=== PATIENT | female | born 1995 | race Caucasian/White ===

== ENCOUNTER → 2023-11-11 16:39 | Outpatient (BNVA) | payer MEDICAID, SELFPAY | PROVIDERS: Visit Provider Nurse Practitioner Family | DX: R11.2 Nausea with vomiting, unspecified (principal); R68.89 Other general symptoms and signs; K52.9 Noninfective gastroenteritis and colitis, unspecified | CPT/HCPCS: 87400; 87426 ==

== ENCOUNTER 2024-06-10 17:06 | Emergency (ER) | payer MEDICAID, SELFPAY ==
[2024-06-10 17:09] VITALS: BP 107/69; PULSE 107; RESP 18; TEMP 36.7; O2SAT 99; BMI 20.3
--- NOTE | 2024-06-10 17:23 | W.ED.NAVMDI ---
HPI - Nausea/Vomiting/Diarrhea General: Chief complaint: Nausea/Vomiting/Diarrhea Stated complaint: nausea Time Seen by Provider: 06/10/24 17:08 Source: patient Mode of arrival: ambulatory Limitations: no limitations History of Present Illness: 28-year-old female is a type I diabetic states she has felt nauseous throughout the day today she has not had any vomiting states she has had a decreased appetite she is able to tolerate fluids but wants make sure she is not going into DKA states her blood sugars running in the 200s at home. She denies any fevers. Associated nausea: Yes Associated symtoms: Reports nausea; Denies chest pain, dysuria or headache(s) Related Data Home Medications Medication Instructions Recorded Confirmed insulin aspart U-100 100 unit/mL 5 unit SUBCUT TID 11/11/23 11/11/23 subcutaneous solution (Novolog U-100 Insulin aspart) insulin glargine 100 unit/mL 20 unit SUBCUT BID 11/11/23 11/11/23 subcutaneous cartridge metoclopramide HCl 5 mg tablet 5 mg PO DAILY 11/11/23 11/11/23 pantoprazole 40 mg granules 40 mg PO DAILY 11/11/23 11/11/23 delayed-release for susp in packet (Protonix) Previous Rx's Medication Instructions Recorded prochlorperazine maleate 5 mg 5 - 10 mg (1 - 2 x 5 mg) PO Q8H 11/11/23 tablet (Compazine) PRN nausea and vomiting 7 days #30 tabs ondansetron 4 mg disintegrating 4 mg PO Q6H PRN nausea and 06/10/24 tablet vomiting #14 tabs Allergies Allergy/AdvReac Type Severity Reaction Status Date / Time No Known Allergies Allergy Unverified 11/11/23 16:12 Review of Systems Const: Denies: fever(s), chills, body aches or change in appetite ENMT: Denies: throat pain or dental pain Card: Denies: chest pain Resp: Denies: dyspnea GI: Reports: nausea and vomiting; Denies: abdominal pain or diarrhea : Denies: dysuria Musc: Denies: neck pain or back pain Skin/Breast: Denies: rash Neuro: Denies: headache(s) PFSH ED PFSH: Medical History Nausea & vomiting Flu-like symptoms Physical Exam Const: COMMON NORMALS: no acute distress, patient oriented x3 and healthy appearing HENMT: COMMON NORMALS: normocephalic and atraumatic HEAD & SCALP: normocephalic and atraumatic Eye: COMMON NORMALS: Equal, round and reactive pupils present and EOMs intact bilaterally PUPIL: Yes Equal, round and reactive pupils present Neck/C-Spine: COMMON NORMALS: full ROM and supple Chest: COMMONS NORMALS: normal inspection of the chest and normal palpation of entire chest wall Resp: COMMON NORMALS: normal respiratory effort, No retractions, No use of accessory muscles and clear to auscultation bilaterally AUSCULTATION: clear to auscultation bilaterally Cardio: COMMON NORMALS: regular rate, regular rhythm and No murmurs present (Cardio) RATE: regular rate RHYTHM: regular rhythm GI: COMMON NORMALS: Normal to inspection, nondistended, normoactive bowel sounds present, Soft to palpation, non-tender and no masses PALPATION: Yes Soft to palpation Extremity: COMMON NORMALS: normal to inspection and full ROM Neuro: COMMON NORMALS: patient oriented x3, moves all extremities and no focal motor deficits Psych: COMMON NORMALS: mental status grossly normal, Normal thought process present and cooperative THOUGHT PROCESS: Normal thought process present Skin: COMMON NORMALS: no rashes or lesions noted and no wounds GENERAL SKIN EXAM: no rashes or lesions noted Course Vital Signs: Vital signs: Vital Signs Temperature 98.1 F 06/10/24 17:09 Pulse Rate 110 H 06/10/24 18:20 Respiratory Rate 18 06/10/24 17:09 Blood Pressure 114/87 06/10/24 18:20 Pulse Oximetry 98 06/10/24 18:20 Oxygen Delivery Me thod Room Air 06/10/24 17:09 MDM - Nausea/Vomiting/Diarrhea Medical Decision Making Patient presents here with nausea feels improved here blood work here is normal she is not DKA she stable for discharge follow-up with PCP return if worsening. Medical Records I reviewed the patient's medical records. Lab Data I reviewed the patient's lab results. 06/10/24 17:50 06/10/24 17:50 Laboratory Results WBC 7.09 10^3/uL (3.29-11.43) 06/10/24 17:50 Corrected WBC Cancelled 06/10/24 17:24 RBC 4.54 10^6/uL (3.85-5.65) 06/10/24 17:50 Hgb 13.80 g/dL (11.27-16.99) 06/10/24 17:50 Hct 42.0 % (36-47) 06/10/24 17:50 MCV 92.5 fl (85-98) 06/10/24 17:50 MCH 30.4 pg (27-33) 06/10/24 17:50 MCHC 32.9 g/dL (30-55) 06/10/24 17:50 RDW 12.7 % (12.1-15.1) 06/10/24 17:50 Plt Count 226 10^3/cmm (157-399) 06/10/24 17:50 MPV 10.9 fL (7.4-10.4) H 06/10/24 17:50 Gran % Cancelled 06/10/24 17:24 Neut % (Auto) 64.6 % 06/10/24 17:50 Lymph % (Auto) 26.4 % 06/10/24 17:50 [place] % (Auto) 6.3 % 06/10/24 17:50 Eos % (Auto) 1.7 % 06/10/24 17:50 Baso % (Auto) 0.7 % 06/10/24 17:50 Neut # (Auto) 4.58 10^3/uL (1.8-7.7) 06/10/24 17:50 Lymph # (Auto) 1.9 10^3/uL (0.8-4.8) 06/10/24 17:50 [place] # (Auto) 0.5 10^3/uL (0.2-0.9) 06/10/24 17:50 Eos # (Auto) 0.1 10^3/uL (0.0-0.8) 06/10/24 17:50 Baso # (Auto) 0.1 10^3/uL (0.0-0.1) 06/10/24 17:50 Absolute Gran (auto) Cancelled 06/10/24 17:24 Nucleated RBC % (auto) 0 % 06/10/24 17:50 Nucleated RBCs # 0.0 /100WBC 06/10/24 17:50 Sodium 138 mmol/L (136-145) 06/10/24 17:50 Potassium 4.3 mmol/L (3.5-5.1) 06/10/24 17:50 Chloride 100 mmol/L (98-107) 06/10/24 17:50 Carbon Dioxide 24 mmol/L (22-29) 06/10/24 17:50 Anion Gap 18.3 (5-19) 06/10/24 17:50 BUN 16 mg/dL (6-20) 06/10/24 17:50 Creatinine 0.6 mg/dL (0.5-0.9) 06/10/24 17:50 GFR Calculation 118.2 mL/min (90-130) 06/10/24 17:50 Glucose 246 mg/dL (65-115) H 06/10/24 17:50 POC Glucose 219 mg/dL (70-110) H 06/10/24 17:33 Calculated Osmolality 295 mOsm/kg (285-295) 06/10/24 17:50 Calcium 9.2 mg/dL (8.5-10.5) 06/10/24 17:50 Total Bilirubin 0.6 mg/dL (0.15-1.2) 06/10/24 17:50 AST 11 U/L (0-32) 06/10/24 17:50 ALT 9 U/L (0-33) 06/10/24 17:50 Alkaline Phosphatase 91 U/L (35-105) 06/10/24 17:50 Total Protein 6.6 g/dL (6.6-8.7) 06/10/24 17:50 Albumin 3.9 g/dL (3.5-5.2) 06/10/24 17:50 Globulin 2.7 g/dL (1.3-4.6) 06/10/24 17:50 Lipase 16 U/L (13-60) 06/10/24 17:50 HCG, Qual Negative (Negative) 06/10/24 17:50 All radiology interpretation(s) finalized by discharge Discharge Plan Discharge Patient Disposition: Home Clinical Impression: Nausea Condition: Stable Prescriptions: New ondansetron 4 mg tablet,disintegrating 4 mg PO Q6H PRN (Reason: nausea and vomiting) Qty: 14 0RF No Action insulin glargine 100 unit/mL cartridge 20 unit SUBCUT BID insulin aspart U-100 [Novolog U-100 Insulin aspart] 100 unit/mL solution 5 unit SUBCUT TID pantoprazole [Protonix] [address] for susp in packet 40 mg PO DAILY metoclopramide HCl 5 mg tablet 5 mg PO DAILY prochlorperazine maleate [Compazine] 5 mg tablet 5 - 10 mg PO Q8H PRN (Reason: nausea and vomiting) 7 Days Qty: 30 0RF Discharge Orders: Discharge ED (Routine); Ordered 06/10/24 Ordered By: Miranda Rivas Discharge Diet: Advance as tolerated Discharge Activity: Resume usual activity Patient Instructions: Acute Nausea and Vomiting (ED) Coding Level of Care Code ED [employer] [facility]
[2024-06-10 17:38] LABS: Glucose Point of Care 219 mg/dL (70-110)
--- NOTE | 2024-06-10 17:38 | PC.NURSE ---
pt glucose via FS 219, pt states she just ate @1430 and a little before that as well. approx x2 hotdogs, sandwich.
[2024-06-10] MEDS: diphenhydrAMINE 50 mg/mL SDV 1mL IVP (17:51)
[2024-06-10] MEDS: metoclopramide 5 mg/mL SDV 2 mL 10 MG IVP (17:52)
[2024-06-10] MEDS: sodium chloride 0.9% 1,000 ML 999 ML IV (17:52)
--- NOTE | 2024-06-10 17:52 | PC.NURSE ---
pt states took 4 units insulin @1500
[2024-06-10 18:06] LABS: Basophils # 0.1 10^3/uL (0.0-0.1); Basophils % 0.7 %; Eosinophils # 0.1 10^3/uL (0.0-0.8); Eosinophils % 1.7 %; Lymphocytes # 1.9 10^3/uL (0.8-4.8); Lymphocytes % 26.4 %; Mean Corpuscular HGB Conc 32.9 g/dL (30-55); Mean Corpuscular Hemoglobin 30.4 pg (27-33); Mean Corpuscular Volume 92.5 fl (85-98); Mean Platelet Volume 10.9 fL (7.4-10.4); Monocytes # 0.5 10^3/uL (0.2-0.9); Monocytes % 6.3 %; Neutrophils # 4.58 10^3/uL (1.8-7.7); Neutrophils % 64.6 %; Nucleated Red Blood Cells % 0 %; Platelet Count 226 10^3/cmm (157-399); Red Blood Count 4.54 10^6/uL (3.85-5.65); Red Cell Distribution Width 12.7 % (12.1-15.1); White Blood Count 7.09 10^3/uL (3.29-11.43)
[2024-06-10 18:16] LABS: HCG, Serum Qual Negative (Negative)
[2024-06-10 18:19] LABS: Alanine Aminotransferase 9 U/L (0-33); Albumin Level 3.9 g/dL (3.5-5.2); Alkaline Phosphatase 91 U/L (35-105); Anion Gap 18.3 (5-19); Aspartate Amino Transferase 11 U/L (0-32); Blood Urea Nitrogen 16 mg/dL (6-20); Calcium 9.2 mg/dL (8.5-10.5); Carbon Dioxide 24 mmol/L (22-29); Chloride 100 mmol/L (98-107); Creatinine Clr Calc Pharmacy 132.2359; Globulin 2.7 g/dL (1.3-4.6); Glomerular Filtration Rate 118.2 mL/min (90-130); Glucose 246 mg/dL (65-115); Lipase 16 U/L (13-60); Osmolality Calculated 295 mOsm/kg (285-295); Potassium 4.3 mmol/L (3.5-5.1); Sodium 138 mmol/L (136-145); Total Bilirubin 0.6 mg/dL (0.15-1.2); Total Protein 6.6 g/dL (6.6-8.7)
[2024-06-10 18:20] VITALS: BP 114/87; PULSE 110; O2SAT 98
[2024-06-10 18:36] VITALS: BP 114/86; PULSE 106; O2SAT 99
== END 2024-06-10 18:37 | disposition home or self-care (01) ==
PROVIDERS: Emergency Provider Emergency Medicine
DX: R11.0 Nausea (principal); E10.9 Type 1 diabetes mellitus without complications
CPT/HCPCS: 36415; 36416; 80053; 82962; 83690; 84703; 85025; 96374; 96375; 99284; J1200; J2765; J7030